=== PATIENT | female | born 1985 | race Caucasian/White ===

== ENCOUNTER 2017-03-19 21:26 | Inpatient (IN) | payer MEDICAID ==
[~2017-03-19] VITALS: Ht 167.6 cm; Wt 77.1 kg
--- NOTE | 2017-03-19 21:43 | NUR ---
PT TO ED WITH C/O VAGINAL BLEED [id number]. PER PT, PT WAS SEEN IN ER AT 03/11/17 WITH RX FOR IRON AND PREVERA. PER PT, BLEEDING HAS DECREASED SINCE TAKING MEDICATIONS, HOWEVER, CONTINUES TO HAVE EPISODES OF HEAVY BLEEDING. PER PT, CHANGED PADS 6 TIMES IN THE LAST HOUR, WITH BRIGHT RED BLOOD. PER RESIDENTIAL COLLECTIONS CAMILA, PT HAD SYNCOPAL EPISODE IN ED LOBBY. PT DOES NOT RECALL SYNCOPAL EPISODE, HOWEVER STATES THAT SHE WAS HAVING CHEST PAIN JUST PRIOR TO SYNCOPAL EPISODE. PT A&OX4, NO ACUTE DISTRESS NOTED, RESP EVEN AND UNLABORED, SITTING UP IN BED, MOTHER AT THE BEDSIDE. PT SKIN IS PALE, DRY, CLEAN, AND INTACT.
[2017-03-19 22:09] LABS: BASOPHIL % 0.7 % (0-2); PLATELET COUNT 281 x10^3mcL (130-400)
[2017-03-19 22:19] LABS: CALCIUM 8.3 mg/dL (8.5-10.1); CARBON DIOXIDE 29.2 mmol/L (21-32); CHLORIDE SERUM 104 mmol/L (98-107); CREATININE SERUM 0.8 mg/dL (0.6-1.0); GFR1 > 60 mL/min; GLUCOSE SERUM 134 mg/dL (74-106); POTASSIUM SERUM 3.7 mmol/L (3.5-5.1); SODIUM SERUM 139 mmol/L (136-145)
[2017-03-19 22:26] LABS: ALKALINE PHOSPHATASE 38 U/L (46-116); ALT/SGPT 13 U/L (14-59); AST/SGOT 7 U/L (15-37); BILIRUBIN TOTAL 0.2 mg/dL (0.20-1.00); TOTAL PROTEIN, SERUM 6.2 g/dL (6.4-8.2)
[2017-03-19 22:28] LABS: ALBUMIN 3.2 g/dL (3.4-5.0)
[2017-03-19 22:36] LABS: rbc morphology (normal/abnorm) ABNORMAL (NORMAL); tear drop cell (dacryocyte) 1+
--- NOTE | 2017-03-19 22:56 | NUR ---
PT SITTING UP IN BED, ON FULL CM, NO DISTRESS NOTED, SMILING AND TALKING TO MOTHER AT THE BEDSIDE. PER PT, PT WITH HX OF VAGINAL BLEED AND NEEDING BLOOD TRANSFUSIONS. PT A&OX4, SPEECH IS CLEAR AND APPROPRIATE, RESP EVEN AND UNLABORED.
[2017-03-20] VITALS (9 sets, daily range): BP systolic 81–92; BP diastolic 42–58
--- NOTE | 2017-03-20 00:32 | NUR ---
BLOOD TRANSFUSION STARTED AT 0025, WITH NATY ODOM AT BEDSIDE FOR TWO NURSE BLOOD CHECK. PT STATES TO INCREASED DIZZINESS AND WEAKNESS PRIOR TO START OF TRANSFUSION.
[2017-03-20] MEDS ORDERED: FERROUS SULFAT325 M2 (00:37)
[2017-03-20] MEDS ORDERED: PRO2.5 (00:37)
--- NOTE | 2017-03-20 00:45 | NUR ---
REPORT TAKEN FROM EBONIE CHAPMAN. ALL CARE ENDORSSED. PT IS GOING TO ROOM 203-A
--- NOTE | 2017-03-20 00:56 | NUR ---
REPORT GIVEN TO KELLIE ALFONSO TO ASSUME OF CARE PT.
--- NOTE | 2017-03-20 01:21 | NUR ---
PT TRANSPORTED TO [facility] VIA [facility] ON CM BY RACHEAL ALFONSO AND AKASH EMT. PT IN NAD. BLOOD TRANSFUSION ON GOING
[2017-03-20] MEDS ORDERED: MEDROXYPROGESTE10 MG (02:23)
--- NOTE | 2017-03-20 03:18 | NUR ---
PT BP IS 85/41MMHG REPORTED TO DR KELLER.PT IS DENIED ANY DIZZINESS AND LIGHT HEADEDNESS. PT IS A/OX4.
[2017-03-20 03:21] LABS: MAGNESIUM 2.1 mg/dL (1.8-2.4); PHOSPHOROUS 2.6 mg/dL (2.5-4.9)
[2017-03-20 03:24] LABS: T3 TOTAL 1.11 ng/mL
[2017-03-20 03:25] LABS: FREE T4 0.87 ng/dL (0.76-1.46); FREE THYROXINE INDEX 2.3 ug/dL (1.4-4.5); T4(THYROXINE) 7.7 ug/dL (4.7-13.3)
--- NOTE | 2017-03-20 03:30 | NUR ---
1L BOLUS STARTED PER DR ROJO, PT CHRISTINA WELL
--- NOTE | 2017-03-20 04:40 | NUR ---
BOLUS COMPLETED BP 85/41MMHG WILL CONTINUE TO MONITOR.
--- NOTE | 2017-03-20 05:00 | NUR ---
BOLUS DONE PT BP 92/49, MAP 65MMHG DR DILLON.
--- NOTE | 2017-03-20 05:36 | NUR ---
DR KELLER INFORMED ABOUT BP OF 81/42 AFTER 1L BOLUS ADMINISTERED BY ASSIGNED NURSE KELLIE.AWAITS ORDER.
--- NOTE | 2017-03-20 05:50 | NUR ---
DR KELLER AND DR FATIMA,CAME AND RE-CHECKED BP WAS 92/49 , HR=80, SAT 98% ON RA, PATIENT JUST GOT BACK FROM BR, DENIED DIZZINESS NOR LIGHTHEADEDNESS. WILL CONTINUE TO MONITOR PATIENT. 2 UNITS PRBC COMPLETED.
--- NOTE | 2017-03-20 06:04 | NUR ---
TRANSFUSION IS COMPLETED PT BP 92/49,MAP 65MMHG. NO REACTION NOTICE. PT DENIES DIZZINESS, LIGHT HEADNESS AT TIME WILL CONTINUE TO MONITOR.
--- NOTE | 2017-03-20 06:33 | NUR ---
NO SS OF DISTRESS NOTED. ALL PT NEEDS ATTENDED. PT IS NPO AT TIME. PT IS IN A STABLE CONDITION. WILL ENDORSE THE CARE TO DAY NURSE.
--- NOTE | 2017-03-20 07:30 | NUR ---
REPORT GIVEN TO KAYLA, ALL CARE ENDORSSED.
--- NOTE | 2017-03-20 07:40 | NUR ---
RECEIVED THE PATIENT ALERT AND ORIENTED TO PERSON, PLACE AND TIME. PATIENT DENIED SHORTNESS OF BREATH OR PAIN AT THIS TIME. IVF NS VIA H/L TO LAC. ANOTHER H/L TO RFA. TELE # 31 READS SINUS RHYTHMS. CALL LIGHT WITHIN REACH. SIDE RAILS UP X3.
[2017-03-20 07:54] LABS: CALCIUM 7.4 mg/dL (8.5-10.1); CARBON DIOXIDE 25.3 mmol/L (21-32); CHLORIDE SERUM 112 mmol/L (98-107); CREATININE SERUM 0.7 mg/dL (0.6-1.0); GFR1 > 60 mL/min; GLUCOSE SERUM 83 mg/dL (74-106); POTASSIUM SERUM 3.8 mmol/L (3.5-5.1); SODIUM SERUM 141 mmol/L (136-145)
--- NOTE | 2017-03-20 08:00 | NUR ---
DR. VALLE IN TO SEE THE PATIENT.
[2017-03-20 08:26] LABS: BASOPHIL % 0.3 % (0-2)
[2017-03-20 08:29] LABS: PLATELET COUNT 228 x10^3mcL (130-400)
[2017-03-20 08:34] LABS: RED CELL DISTRIBUTION WIDTH 15.4 % (11.5-14.5)
--- NOTE | 2017-03-20 09:01 | NUR ---
DR. NATH-RESIDENT WAS INFORMED OF THE PATIENT'S LAB RESULTS THIS MORNING INCLUDED H/H 6.9/22. ALSO, DOCTOR WAS NOTIFIED OF THE PATIENT'S BP 88/44. AWAITING FOR NEW ORDER.
--- NOTE | 2017-03-20 09:35 | NUR ---
DR. KHAN AND THE TEAM WERE MAKING ROUND TO SEE THE PATIENT. THE CARE PLAN WAS EXPLAINED TO THE PATIENT. THE PATIENT AGREED WITH THE PLAN.
[2017-03-20 10:14] LABS: UA SPECIFIC GRAVITY 1.015 (1.005-1.035); microscopic required? YES; urine erythrocyte 3+ (NEGATIVE)
[2017-03-20 10:31] LABS: AMPHETAMINE QUAL UR NONE DETECTED (NEG <=1000)
[2017-03-20 11:03] LABS: rbc morphology (normal/abnorm) ABNORMAL (NORMAL)
--- NOTE | 2017-03-20 18:39 | NUR ---
PATIENT DENIED DIZZINESS AND STATED FEELING BETTER TOWARD THE END OF SHIFT. PATIENT'S BP WAS AT LOW SIDE (80<SBP<100) THROUGHOUT THE SHIFT. DR. NATH- RESIDENT WAS AWARE OF THAT.
--- NOTE | 2017-03-20 19:20 | NUR ---
RECEIVED PT IN BED AWAKE, ALERT,ORIENTED X4. SHE DENIED HAVING DIZZINESS AND HEADACHE. NO SOB ON RA. SHE DENIED PAIN. PT DESCRIBED VAGINAL BLEEDING " SPOTTING". PT ALSO STATED THAT SHE FEELS MUCH BETTER. W/ IVF NS INFUSING AT 120 CC/HR IA LTAC. W/ HL TO RTFA INTACT. CALL LIGHT W/IN REACH.
[2017-03-21 00:49] LABS: CALCIUM 8.1 mg/dL (8.5-10.1); CARBON DIOXIDE 27.3 mmol/L (21-32); CHLORIDE SERUM 110 mmol/L (98-107); CREATININE SERUM 0.6 mg/dL (0.6-1.0); GFR1 > 60 mL/min; GLUCOSE SERUM 76 mg/dL (74-106); POTASSIUM SERUM 4.1 mmol/L (3.5-5.1); SODIUM SERUM 140 mmol/L (136-145)
[2017-03-21 00:52] LABS: BASOPHIL % 0.6 % (0-2); PLATELET COUNT 253 x10^3mcL (130-400)
[2017-03-21 00:53] LABS: RED CELL DISTRIBUTION WIDTH 16.1 % (11.5-14.5)
--- NOTE | 2017-03-21 00:54 | NUR ---
ASSUMED CARE OF PT AT THIS TIME. PT APPEARS TO BE SLEEPING COMFORTABLY. NO S/S OF DISTRESS.
--- NOTE | 2017-03-21 05:06 | NUR ---
PT SLEPT COMFORTABLY. SHE HAD NO EPISDOE OF DIZZINESS. SHE HAD NO C/O PAIN. LATEST IS . PT ABLE TO AMBULATE INDEPENDENTLY W/ STEADY GAIT.
[2017-03-21 05:14] VITALS: BP 90/46
--- NOTE | 2017-03-21 08:00 | NUR ---
ALERT AND ORIENTED. BREATHING FREELY ON RA. INDEPENDENT W ADL'S. DENIES ANY LIGHTHEADEDNESS OR DIZZINESS. VAGINAL BLEEDING/SPOTTING THIS AM MORE THAN YESTERDAY. SL TO LEFT AC AND RT FA. NO C/O PAIN. LAST H/H 7.4. CALL LIGHT WITHIN REACH. HAD REG DIET FOR BREAKFAST.
[2017-03-21 09:00] VITALS: BP 92/51
[2017-03-21 12:47] VITALS: Ht 167.6 cm; Wt 77.1 kg
--- NOTE | 2017-03-21 13:41 | NUR ---
NPO FOR D&C THIS AFTERNOON. CONSENT SIGNED. USED [email or web address] WIPES. CK LIST COMPLETED. RESTING COMFORTABLY IN ROOM. CALL LIGHT WITHININ REACH.
--- NOTE | 2017-03-21 16:29 | NUR ---
PT LEFT FLOOR FOR D AND C TO BE PERFORMED BY DR. VALLE. TELE STATION INFORMED.
--- NOTE | 2017-03-21 17:37 | NUR ---
BACK FROM OR S/P D&C.
--- NOTE | 2017-03-21 17:38 | NUR ---
RECEIVED PATIENT FROM OR, PATIENT IN NO ACUTE DISTRESS, NO C/O PAIN AT THIS TIME, VITALS BP 86/52, HR 68, PULSE OX 97%, RR 16, TEMP 97.9, WILL CONTINUE TO MONITOR
--- NOTE | 2017-03-21 19:04 | NUR ---
RESTING QUIETLY WITH FAMILY AT BEDSIDE. TOLERATED REG DIET. VSS. NO IV FLUIDS. TELE # 31 SINUS ARRYTHMIA. INDEPENDENT W ADL'S. CALL LIGHT WITHIN REACH. NO C/O PAIN.
--- NOTE | 2017-03-21 20:01 | NUR ---
PT RECIEVED AAO REG RESP NO SOB,V/S STABLE,KEPT CLEAN AND DRY TO TOUCH,PT HAS A HL SITE PATENT AND INTACT,PT WITH BRP V/S STABLE,PT ON TELE MONITOR AND IN NSR NO ECTOPY OR CHEST PAIN AT THIS TIME.CALL LIGHT EASY REACHED AND WILL CONTINUE TO MONITOR.
[2017-03-21 21:07] VITALS: BP 98/59
[2017-03-22 05:52] VITALS: BP 96/59
--- NOTE | 2017-03-22 06:51 | NUR ---
PT HAD A RESTING NIGHT KEPT CLEAN AND DRY TO TOUCH ASND WILL CONTINUE TO MONITOR.
[2017-03-22 07:12] LABS: CALCIUM 8.8 mg/dL (8.5-10.1); CHLORIDE SERUM 105 mmol/L (98-107); CREATININE SERUM 0.7 mg/dL (0.6-1.0); GFR1 > 60 mL/min; GLUCOSE SERUM 80 mg/dL (74-106); POTASSIUM SERUM 4.2 mmol/L (3.5-5.1); SODIUM SERUM 140 mmol/L (136-145)
[2017-03-22 07:31] LABS: BASOPHIL % 0.1 % (0-2); PLATELET COUNT 302 x10^3mcL (130-400)
--- NOTE | 2017-03-22 07:45 | NUR ---
PATIENT A/O ABLE TO MAKE NEEDS KNOWN AND FOLLOW COMMANDS, DENIES HEADACHE/DIZZINESS. TELE 31, DENIES CP. LUNGS CTA NO RESP DISTRESS NOTED ON RA. PERIPHERAL PULSES PALPABLE, NO EDEMA NOTED. BOWEL SOUNDS ACTIVE, LAST BM STATED 2 DAYS AGO, DENIES N/V, ABD SOFT. STATES "LITTLE" VAGINAL BLEEDING WITH SATURATION OF 1 PERIPAD OVERNIGHT, DENIES PAIN OR DYSURIA. IV ACCESS SITES TO LAC AND RFA, SITES WNL. CALL LIGHT WITHIN REACH.
[2017-03-22 07:48] LABS: RED CELL DISTRIBUTION WIDTH 15.8 % (11.5-14.5)
[2017-03-22 08:26] VITALS: BP 90/46
[2017-03-22 08:27] VITALS: BP 105/57
[2017-03-22] MEDS ORDERED: PRI20 PO (11:44)
[2017-03-22] MEDS ORDERED: ZOFI IV (11:44)
[2017-03-22] MEDS ORDERED: DROSPIRENONE AN1 TAB PO ×2 (11:44→12:30)
[2017-03-22] MEDS ORDERED: OSCD PO (12:18)
[2017-03-22] MEDS ORDERED: TYL325 PO (12:18)
[2017-03-22] MEDS ORDERED: PRILOSEC OTC20 M1 PO (12:20)
[2017-03-22] MEDS ORDERED: ZOF4 PO (12:21)
[2017-03-22 12:40] VITALS: BP 105/57
== END 2017-03-22 13:55 | disposition home or self-care (01) | DRG 517 ==
LOC: ED 21:26 → DU 03-20 00:17 → MU 03-20 00:17 → DU 03-20 02:04 → MU 03-22 06:38
PROVIDERS: Emergency Medicine; Family Medicine; Obstetrics & Gynecology; ADMIT Family Medicine
PROC: 30233N1 Transfusion of Nonautologous Red Blood Cells into Peripheral Vein, Percutaneous Approach (ICD-10-PCS; 2017-03-20)
PROC: 0UDB7ZZ Extraction of Endometrium, Via Natural or Artificial Opening (ICD-10-PCS; principal; 2017-03-21 16:30)
DX: N92.1 Excessive and frequent menstruation with irregular cycle (principal); E44.0 Moderate protein-calorie malnutrition; D62 Acute posthemorrhagic anemia; E83.51 Hypocalcemia; I95.89 Other hypotension; Z68.27 Body mass index [BMI] 27.0-27.9, adult
CPT/HCPCS: 83880; 84439; C1758; J1200; J2405; J2704; J3010; J7030; J7120; P9016; Q0092

== ENCOUNTER 2017-08-12 21:25 | Emergency (ER) | payer MEDICAID ==
[~2017-08-12] VITALS: Ht 157.5 cm; Wt 62.1 kg
[~2017-08-12 21:25] MED LIST: DROSPIRENONE AN1 TAB PO; FERROUS SULFAT325 M2; MEDROXYPROGESTE10 MG; OSCD PO; PRI20 PO; PRILOSEC OTC20 M1 PO; PRO2.5; TYL325 PO; ZOF4 PO; ZOFI IV
[2017-08-12 21:33] VITALS: Ht 157.5 cm; Wt 62.1 kg
[2017-08-12 22:33] LABS: BASOPHIL % 0.5 % (0-2); PLATELET COUNT 329 x10^3mcL (130-400); RED CELL DISTRIBUTION WIDTH 14.1 % (11.5-14.5)
[2017-08-12 23:20] VITALS: BP 102/66
== END 2017-08-12 23:20 | disposition home or self-care (01) ==
LOC: ED 21:25
PROVIDERS: Emergency Medicine
DX: N92.1 Excessive and frequent menstruation with irregular cycle (principal)
CPT/HCPCS: 36415

== ENCOUNTER 2017-08-25 17:17 | Emergency (ER) | payer MEDICAID ==
[~2017-08-25] VITALS: Ht 162.6 cm; Wt 60.8 kg
[2017-08-25 18:02] VITALS: Ht 162.6 cm; Wt 60.8 kg
[2017-08-25 21:36] VITALS: BP 115/80
== END 2017-08-25 21:36 | disposition home or self-care (01) ==
LOC: ED 17:17
DX: N93.8 Other specified abnormal uterine and vaginal bleeding (principal); Z86.2 Personal history of diseases of the blood and blood-forming organs and certain disorders involving the immune mechanism

== ENCOUNTER 2017-11-10 17:35 | Emergency (ER) | payer MEDICAID ==
[~2017-11-10] VITALS: Ht 167.6 cm; Wt 60.3 kg
[2017-11-10 17:43] VITALS: Ht 167.6 cm; Wt 60.3 kg
[2017-11-10 18:58] LABS: BASOPHIL % 0.3 % (0-2); PLATELET COUNT 295 x10^3mcL (130-400)
[2017-11-10 19:12] LABS: RED CELL DISTRIBUTION WIDTH 18.6 % (11.5-14.5)
[2017-11-10 19:48] VITALS: BP 100/67
== END 2017-11-10 19:48 | disposition home or self-care (01) ==
LOC: ED 17:35
PROVIDERS: Emergency Medicine
DX: N93.8 Other specified abnormal uterine and vaginal bleeding (principal); D64.9 Anemia, unspecified
CPT/HCPCS: 36415

== ENCOUNTER 2018-02-18 18:02 | Emergency (ER) | payer MEDICAID ==
[~2018-02-18] VITALS: Ht 157.5 cm; Wt 62.6 kg
[2018-02-18 18:18] VITALS: Ht 157.5 cm; Wt 62.6 kg
[2018-02-18 19:48] LABS: BASOPHIL % 0.5 % (0-2); PLATELET COUNT 283 x10^3mcL (130-400)
[2018-02-18 19:50] LABS: RED CELL DISTRIBUTION WIDTH 16.5 % (11.5-14.5)
[2018-02-18 20:31] VITALS: BP 97/56
== END 2018-02-18 20:31 | disposition home or self-care (01) ==
LOC: ED 18:02
PROVIDERS: Emergency Medicine
DX: N93.8 Other specified abnormal uterine and vaginal bleeding (principal); D50.9 Iron deficiency anemia, unspecified
CPT/HCPCS: 36415

== ENCOUNTER 2018-03-02 08:15 | Emergency (ER) | payer MEDICAID ==
[~2018-03-02] VITALS: Ht 162.6 cm; Wt 63.0 kg
[2018-03-02 08:56] LABS: CALCIUM 8.6 mg/dL (8.5-10.1); CARBON DIOXIDE 28.3 mmol/L (21-32); CHLORIDE SERUM 105 mmol/L (98-107); CREATININE SERUM 0.7 mg/dL (0.6-1.0); GFR1 > 60 mL/min; GLUCOSE SERUM 101 mg/dL (74-106); POTASSIUM SERUM 3.6 mmol/L (3.5-5.1); SODIUM SERUM 142 mmol/L (136-145)
[2018-03-02 09:02] LABS: ALBUMIN 3.6 g/dL (3.4-5.0); ALKALINE PHOSPHATASE 58 U/L (46-116); ALT/SGPT 15 U/L (14-59); AST/SGOT 8 U/L (15-37); BILIRUBIN TOTAL 0.3 mg/dL (0.20-1.00); TOTAL PROTEIN, SERUM 6.9 g/dL (6.4-8.2)
[2018-03-02 09:03] LABS: BASOPHIL % 0.4 % (0-2); PLATELET COUNT 293 x10^3mcL (130-400)
[2018-03-02 09:55] LABS: UA SPECIFIC GRAVITY <=1.005 (1.005-1.035); microscopic required? YES; urine erythrocyte 3+ (NEGATIVE)
[2018-03-02 11:41] VITALS: BP 93/51
== END 2018-03-02 11:41 | disposition home or self-care (01) ==
LOC: ED 08:15
PROVIDERS: Emergency Medicine
DX: N93.8 Other specified abnormal uterine and vaginal bleeding (principal); Z86.2 Personal history of diseases of the blood and blood-forming organs and certain disorders involving the immune mechanism
CPT/HCPCS: 36415

== ENCOUNTER 2018-05-31 16:11 | Emergency (ER) | payer MEDICAID ==
[2018-05-31 16:24] VITALS: BP 129/72
== END 2018-05-31 18:46 | disposition home or self-care (01) ==
LOC: ED 16:11
DX: J02.9 Acute pharyngitis, unspecified (principal); R20.2 Paresthesia of skin; R09.89 Other specified symptoms and signs involving the circulatory and respiratory systems; Z86.2 Personal history of diseases of the blood and blood-forming organs and certain disorders involving the immune mechanism

== ENCOUNTER 2019-10-06 16:42 | Emergency (ER) | payer MEDICAID ==
[~2019-10-06] VITALS: Ht 162.6 cm; Wt 66.7 kg
[2019-10-06 16:50] VITALS: Ht 162.6 cm; Wt 66.7 kg
[2019-10-06 17:32] LABS: BASOPHIL % 0.5 % (0-2); PLATELET COUNT 345 x10^3mcL (130-400)
[2019-10-06 17:34] LABS: RED CELL DISTRIBUTION WIDTH 17.6 % (11.5-14.5)
[2019-10-06 17:46] LABS: CALCIUM 8.2 mg/dL (8.5-10.1); CARBON DIOXIDE 25.4 mmol/L (21-32); CHLORIDE SERUM 103 mmol/L (98-107); CREATININE SERUM 0.8 mg/dL (0.6-1.0); GFR1 > 60 mL/min; GLUCOSE SERUM 131 mg/dL (74-106); POTASSIUM SERUM 3.7 mmol/L (3.5-5.1); SODIUM SERUM 140 mmol/L (136-145)
[2019-10-06 17:51] LABS: ALKALINE PHOSPHATASE 61 U/L (46-116); ALT/SGPT 27 U/L (14-59); AST/SGOT 14 U/L (15-37)
[2019-10-06 17:52] LABS: ALBUMIN 3.3 g/dL (3.4-5.0)
[2019-10-06 18:06] LABS: BILIRUBIN TOTAL 0.1 mg/dL (0.20-1.00)
[2019-10-06 21:21] VITALS: BP 110/45
== END 2019-10-06 21:21 | disposition home or self-care (01) ==
LOC: ED 16:42
PROVIDERS: Specialist
DX: D50.0 Iron deficiency anemia secondary to blood loss (chronic) (principal); D25.9 Leiomyoma of uterus, unspecified; N93.9 Abnormal uterine and vaginal bleeding, unspecified
CPT/HCPCS: 36415; J7030

== ENCOUNTER 2020-02-25 07:45 | Emergency (ER) | payer MEDICAID ==
[~2020-02-25] VITALS: Ht 162.6 cm; Wt 60.3 kg
[2020-02-25 07:51] VITALS: Ht 162.6 cm; Wt 60.3 kg
[2020-02-25 09:14] LABS: CALCIUM 8.4 mg/dL (8.5-10.1); CARBON DIOXIDE 27.4 mmol/L (21-32); CHLORIDE SERUM 102 mmol/L (98-107); CREATININE SERUM 0.8 mg/dL (0.6-1.0); GFR1 > 60 mL/min; GLUCOSE SERUM 91 mg/dL (74-106); POTASSIUM SERUM 4.3 mmol/L (3.5-5.1); SODIUM SERUM 137 mmol/L (136-145)
[2020-02-25 09:18] LABS: ALKALINE PHOSPHATASE 56 U/L (46-116); ALT/SGPT 24 U/L (14-59); AST/SGOT 11 U/L (15-37); BILIRUBIN TOTAL 0.3 mg/dL (0.20-1.00); LIPASE 117 IU/L (73-393); TOTAL PROTEIN, SERUM 6.9 g/dL (6.4-8.2)
[2020-02-25 09:19] LABS: ALBUMIN 3.1 g/dL (3.4-5.0)
[2020-02-25 10:01] LABS: BASOPHIL % 0.6 % (0-2); PLATELET COUNT 331 x10^3mcL (130-400); RED CELL DISTRIBUTION WIDTH 15.8 % (11.5-14.5)
[2020-02-25 11:56] VITALS: BP 111/63
== END 2020-02-25 11:55 | disposition home or self-care (01) ==
LOC: ED 07:45
DX: N93.8 Other specified abnormal uterine and vaginal bleeding (principal); D53.9 Nutritional anemia, unspecified; R11.10 Vomiting, unspecified; R07.89 Other chest pain
CPT/HCPCS: J1885; Q0092